=== PATIENT | female | born 1950 | race Caucasian/White ===

== ENCOUNTER 2019-10-10 07:19 | Day surgery (SDC) | payer OTHER, MEDICARE ==
[2019-10-04 09:27] VITALS: BMI 21.7
[2019-10-10] MEDS ORDERED: LIDOCAINE 1%/EPI 1:100000 (20 ML MULTI DOSE VIAL) ONE (09:06)
[2019-10-10] MEDS ORDERED: ERYTHROMYCIN 0.5% OPHTHALMIC OINTMENT 3.5 GM TUBE ONE (09:06)
[2019-10-10] MEDS ORDERED: TETRACAINE 0.5% OPHTH SOLN 2 ML BOTTLE ONE (09:06)
[2019-10-10] MEDS ORDERED: PROPOFOL 20 ML ONE ×3 (09:15)
[2019-10-10] MEDS ORDERED: DEXAMETHASONE SOD PHOSPHATE 4 MG/1 ML VIAL ONE (09:15)
[2019-10-10] MEDS ORDERED: GLYCOPYRROLATE 0.2 MG/1 ML VIAL ONE (09:15)
[2019-10-10] MEDS ORDERED: MIDAZOLAM HCL 2 MG/2 ML SINGLE DOSE VIAL ONE ×2 (09:15)
[2019-10-10] MEDS ORDERED: ONDANSETRON 4 MG/2 ML VIAL ONE (09:15)
--- NOTE | 2019-10-10 09:18 | PN ---
Progress Note (short form) - Note Progress Note: Pt seen for ambulatory b/l ptosis repair with Dr. Killian. Pt is a 69yo F with h/o HTN (well-controlled) and Raynaud's phenomenon who presents today for her repair as planned. Patient takes Telmisartan 40mg qdaily, HCTZ 12.5mg qdaily regularly along with a multivitamin. She is in healthy condition and has no complaints at present time. 12-point ROS negative at this time of exam. Surgical Hx: Minor local procedures previously FamHx: Noncontributory SoHx: No Tobacco, social alcohol (none recently) and no illicit substances PE: Gen: NAD, awake, alert orientedx3 HEENT: B/l ptsosis noted, eOMI w/o nystagmus, HITESH, MMM Neck: No JVD LUNG: CTA b/l no wheezes or rhonchi CARD: RRR no murmurs ABD: Soft, NT/ND, normoactive BS EXT: No edema, pulses strong distally b/l A/P Ptosis repair History of HTN well-controlled Raynaud's phenomenon, not active Continue with procedure as planned per surgery Rest of info in paper chart Tejas Cedillo, - IM
[2019-10-10] MEDS ORDERED: ceFAZolin SODIUM 1 GM VIAL ONE (09:19)
[2019-10-10] MEDS ORDERED: ceFAZolin SODIUM 1 GM VIAL IVPB ONE (09:36)
[2019-10-10] MEDS ORDERED: ONDANSETRON 4 MG/2 ML VIAL IVPUSH PRN (10:44)
[2019-10-10] MEDS ORDERED: oxyCODONE HCL 5 MG TABLET PO PRN (10:44)
[2019-10-10] MEDS ORDERED: LACTATED RINGERS SOLUTION 1,000 ML IV SCH (10:45)
[2019-10-10 13:52] VITALS: TEMP 98.5
[2019-10-10 13:55] VITALS: PULSE 62
[2019-10-10 13:59] VITALS: BP 117/62
--- NOTE | 2019-10-10 14:39 | OP ---
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 PROCEDURE: Levator advancement and reattachment right upper lid; levator advancement and reattachment left upper lid; dissection up into the superior orbit to Whitnall's ligament in order to find a significantly dehisced levator and bring it down to the superior tarsal plate. SURGEON: Chavez Murrieta MD ANESTHESIA: Local with sedation. COMPLICATIONS: None. ESTIMATED BLOOD LOSS: 1 to 2 mL OPERATIVE REPORT: Patient brought to the operating room, placed on the operating room table. Vital signs monitored by Anesthesia. Tetracaine was placed in both eyes. Lid creases marked symmetrically approximately 10 mm above the lid margin since the patient did not have a well-defined lid crease. Timeout was performed after which 2% Xylocaine with 1:100,000 epinephrine was injected subcutaneously in both upper lids for a total of 0.5 mL in each eyelid. Massage was applied for hemostasis and dispersion of anesthetic. Patient was prepped and draped in usual sterile fashion exposing both eyes. The following procedures were performed bilaterally: Lid crease was incised with a 15-blade and this was carried down through subcutaneous tissue, and then the Culberson needle was used for hemostasis and the Culberson needle was used to dissect through orbicularis. Suborbicularis plane was dissected superiorly as there appeared to be no preaponeurotic fat in the lower eyelid. Dissection was carried down under the orbicularis up to the superior orbital rim and exposing the Whitnall's ligament until the fat pad was identified fairly high up in the superior orbit and behind the septum, and this allowed for clear identification of the levator aponeurotic plane which was completely dehisced. This was true bilaterally. The levator was then brought down. Suborbicularis plane was dissected inferiorly exposing the anterior superior tarsus and the levator was then reattached with a mattress, 2 interrupted 6-0 nylon sutures, taking partial-thickness bites of tarsus. Due to the patient's blepharospasm there was a continually variable eyelid position and multiple replacements of the 6-0 nylon sutures were necessary until an acceptable upper lid position with good contour and symmetry was obtained, and this was accomplished with 2 mattress, 2 interrupted nylon sutures in each eyelid. The lids were everted demonstrating no penetration of the nylon sutures after these were tied and cut. Antibiotic irrigation was again used. Hemostasis was in evidence and the wounds were closed with a combination of running and interrupted 6-0 plain suture. There was some temporal bleeding at the end of the left upper lid which was cauterized and then the wound was again sutured with an interrupted 6-0 plain suture. Erythromycin ointment was placed along the sutures of both upper lids and the patient was taken to the recovery room in stable condition. CHAVEZ MURRIETA M.D. [id number]
== END 2019-10-10 13:00 | disposition home or self-care (01) ==
LOC: FASU 07:19
PROVIDERS: ATTEND Ophthalmology
PROC: 08SN0ZZ Reposition Right Upper Eyelid, Open Approach (ICD-10-PCS; 2019-10-10)
PROC: 08SP0ZZ Reposition Left Upper Eyelid, Open Approach (ICD-10-PCS; principal; 2019-10-10 09:40)
DX: H02.423 Myogenic ptosis of bilateral eyelids (principal)
CPT/HCPCS: 94760